=== PATIENT | female | born 1955 | race African-American/Black ===

== ENCOUNTER 2018-07-24 07:04 | Emergency (ER) | payer MEDICAID ==
[~2018-07-24] VITALS: Ht 167.6 cm; Wt 68.0 kg
[2018-07-24 07:15] VITALS: BP 142/88
== END 2018-07-24 10:40 | disposition left against medical advice (07) ==
LOC: ER 07:36
DX: R10.9 Unspecified abdominal pain (principal); Z53.21 Procedure and treatment not carried out due to patient leaving prior to being seen by health care provider

== ENCOUNTER 2019-10-28 10:16 | Emergency (ER) | payer MEDICARE, MEDICAID ==
[~2019-10-28] VITALS: Ht 165.1 cm; Wt 60.0 kg
[2019-10-28] MEDS ORDERED: SODIUM CHLORIDE 0.9% 1,000 ML IV ONE (10:51)
[2019-10-28] MEDS ORDERED: HYDROCODONE/ACETAMINOPHEN 5/325MG TABLET PO STA (10:51)
[2019-10-28 11:20] LABS: BASOPHILS % 1.3 % (0.0-2.0); EOSINOPHILS % 3.2 % (0.0-5.0); HEMATOCRIT. 47.1 % (36.0-48.0); HEMOGLOBIN. 15.8 g/dL (12.0-16.0); LYMPHOCYTES % 30.1 % (20.0-50.0); MEAN CORPUSCULAR HEMOGLOBIN 34.9 pg (28.0-32.0); MEAN CORPUSCULAR VOLUME 103.9 fL (81.0-99.0); MEAN PLATELET VOLUME 8.1 fl (7.4-10.4); MONOCYTES % 5.7 % (2.0-8.0); NEUTROPHILS % 59.7 % (40.0-76.0); PLATELET 271 x1000/uL (130-400); RED BLOOD CELL COUNT 4.54 mill/uL (4.2-5.4); RED CELL DISTRIBUTION WIDTH 13.1 % (11.6-14.6)
[2019-10-28 11:25] LABS: INR 0.9
[2019-10-28 11:28] LABS: CHLORIDE 112 mEq/L (98-107)
[2019-10-28] MEDS ORDERED: IPRATROPIUM BROMIDE (0.02%) 0.5MG/2.5ML NEB HHN STA (11:52)
[2019-10-28] MEDS ORDERED: ALBUTEROL (0.083%) 2.5MG/3ML NEB HHN STA (11:52)
[2019-10-28] MEDS ORDERED: PREDNISONE 20MG TABLET PO STA (11:52)
[2019-10-28] MEDS ORDERED: DEXTROSE 50% WATER 50ML SYRINGE IV ONE (13:00)
[2019-10-28 13:13] LABS: CLARITY URINE CLEAR (CLEAR); COLOR URINE YELLOW (YELLOW); KETONES URINE NEGATIVE (NEGATIVE); LEUKOCYTE ESTERASE URINE NEGATIVE (NEGATIVE); NITRITE URINE NEGATIVE (NEGATIVE); OCCULT BLOOD URINE NEGATIVE (NEGATIVE); PH URINE 6.5 (4.5-8.0); PROTEIN URINE NEGATIVE (NEGATIVE); SPECIFIC GRAVITY URINE 1.019 (1.005-1.030)
[2019-10-28] MEDS ORDERED: IBUPROFEN 600MG TABLET PO ONE (15:15)
[2019-10-28 16:52] VITALS: BP 137/77
== END 2019-10-28 16:54 | disposition home or self-care (01) ==
LOC: EDBD → ER 10:16
DX: J40 Bronchitis, not specified as acute or chronic (principal); K94.09 Other complications of colostomy; F20.9 Schizophrenia, unspecified; Q43.8 Other specified congenital malformations of intestine; Z79.899 Other long term (current) drug therapy
CPT/HCPCS: 36415; 71045; 74176; 80053; 81003; 83605; 85025; 85610; 94640; 96374; 99285; J7030; J7512

== ENCOUNTER 2019-10-29 23:26 | Inpatient (IN) | payer MEDICARE, MEDICAID ==
[~2019-10-29] VITALS: Ht 172.7 cm; Wt 54.0 kg
[2019-10-30] VITALS: BP 147/74
[2019-10-30 02:00] LABS: CHLORIDE 113 mEq/L (98-107)
[2019-10-30 02:11] LABS: BASOPHILS % 0.8 % (0.0-2.0); EOSINOPHILS % 0.9 % (0.0-5.0); HEMATOCRIT. 43.9 % (36.0-48.0); HEMOGLOBIN. 15.1 g/dL (12.0-16.0); LYMPHOCYTES % 41.4 % (20.0-50.0); MEAN CORPUSCULAR HEMOGLOBIN 36.1 pg (28.0-32.0); MEAN CORPUSCULAR VOLUME 104.9 fL (81.0-99.0); MEAN PLATELET VOLUME 8.4 fl (7.4-10.4); MONOCYTES % 4.1 % (2.0-8.0); NEUTROPHILS % 52.8 % (40.0-76.0); PLATELET 248 x1000/uL (130-400); RED BLOOD CELL COUNT 4.19 mill/uL (4.2-5.4); RED CELL DISTRIBUTION WIDTH 13.2 % (11.6-14.6)
[2019-10-30] MEDS ORDERED: INSULIN REGULAR (HUMULIN R) 300UNITS/3ML IV ONE (04:45)
[2019-10-30] MEDS ORDERED: DEXTROSE 50% WATER 50ML SYRINGE IV ONE (04:45)
[2019-10-30] MEDS ORDERED: SODIUM BICARBONATE 8.4% 1 MEQ/ML 50ML SYR IV ONE (04:45)
[2019-10-30] MEDS ORDERED: IPRATROPIUM/ALBUTEROL 0.5-3(2.5)MG/3ML NEB NEB SCH (10:30)
[2019-10-30] MEDS ORDERED: ACETAMINOPHEN 325MG TABLET PO PRN (10:30)
[2019-10-30] MEDS ORDERED: CLONIDINE 0.1MG TABLET PO PRN (10:30)
[2019-10-30 10:58] LABS: BG BASE EXCESS 3.8 mmol/L (-2.0-2.0); BG CARBOXYHEMOGLOBIN 2.7 % (0.5-1.5); BG DEOXYHEMOGLOBIN 4.3 % (0.0-5.0); BG FRACTION INSPIRED OXYGEN 21; BG HCO3 ACT 26.8 mmol/L (22.0-26.0); BG METHEMOGLOBIN 0.1 % (0.0-1.5); BG OXYGEN SATURATION 95.6 % (92.0-98.5); BG OXYHEMOGLOBIN 92.9 % (94.0-97.0); BG PCO2 35.2 mmHg (35.0-45.0); BG PH 7.499 (7.350-7.450); BG PO2 73.8 mmHg (75.0-100.0); BG SAMPLE SITE RIGHT RADIAL; BG TOTAL HEMOGLOBIN 14.5 g/dL (12.0-18.0); BG VENT MODE ROOM AIR
[2019-10-30] MEDS ORDERED: SODIUM POLYSTYRENE SULFONATE 15 G/60 ML BOT PO NR (11:00)
[2019-10-30] MEDS ORDERED: DOXYCYCLINE HYCLATE 100MG CAPSULE PO ONE (11:00)
[2019-10-30] MEDS: SODIUM CHLORIDE 0.9% 1,000 ML IV SCH (11:28)
[2019-10-30] MEDS ORDERED: GABAPENTIN 300MG CAPSULE PO NR (14:15)
[2019-10-30] MEDS: METHYLPREDNISOLONE SOD SUCC 40 MG/ML VIAL IV SCH (17:52)
[2019-10-30] MEDS ORDERED: DOXYCYCLINE HYCLATE 100MG CAPSULE PO SCH (18:00)
[2019-10-30 20:17] LABS: CHLORIDE 111 mEq/L (98-107)
[2019-10-30 22:00] VITALS: BP 154/81
[2019-10-30 22:20] VITALS: BP 157/87
[2019-10-30] MEDS: GUAIFENESIN 600MG ER TABLET PO SCH (23:16)
[2019-10-30] MEDS: GABAPENTIN 300MG CAPSULE PO SCH (23:17)
[2019-10-30] MEDS: HYDROCODONE/ACETAMINOPHEN 5/325MG TABLET PO PRN (23:19)
[2019-10-30] MEDS: HEPARIN 5000 UNITS/ML VIAL SUBCUT SCH (23:21)
[2019-10-31] MEDS: METHYLPREDNISOLONE SOD SUCC 40 MG/ML VIAL IV SCH ×3 (02:42→17:30)
[2019-10-31] MEDS: SODIUM CHLORIDE 0.9% 1,000 ML IV SCH ×2 (02:46→12:00)
[2019-10-31 04:00] VITALS: BP 130/67
[2019-10-31] MEDS: IPRATROPIUM/ALBUTEROL 0.5-3(2.5)MG/3ML NEB HHN SCH ×2 (05:16→12:00)
[2019-10-31] MEDS: GABAPENTIN 300MG CAPSULE PO SCH ×3 (06:20→21:38)
[2019-10-31 06:38] LABS: HEMATOCRIT. 45.4 % (36.0-48.0); HEMOGLOBIN. 15.6 g/dL (12.0-16.0); MEAN CORPUSCULAR VOLUME 104.9 fL (81.0-99.0); MEAN PLATELET VOLUME 9.2 fl (7.4-10.4); PLATELET 295 x1000/uL (130-400); RED BLOOD CELL COUNT 4.33 mill/uL (4.2-5.4); RED CELL DISTRIBUTION WIDTH 12.9 % (11.6-14.6)
[2019-10-31 07:40] LABS: CHLORIDE 108 mEq/L (98-107)
[2019-10-31 08:00] VITALS: BP 141/81
[2019-10-31] MEDS: DOXYCYCLINE HYCLATE 100MG CAPSULE PO SCH ×2 (09:33→17:00)
[2019-10-31] MEDS: HYDROCODONE/ACETAMINOPHEN 5/325MG TABLET PO PRN ×2 (09:33→18:18)
[2019-10-31] MEDS: GUAIFENESIN 600MG ER TABLET PO SCH ×2 (09:34→21:39)
[2019-10-31] MEDS: HEPARIN 5000 UNITS/ML VIAL SUBCUT SCH ×2 (09:34→21:41)
[2019-10-31 10:46] LABS: PLATELET ESTIMATE NORMAL
[2019-10-31] MEDS: DOCUSATE SODIUM 100MG CAPSULE PO PRN ×2 (11:53→18:18)
[2019-10-31] MEDS: ONDANSETRON HCL 4MG/2ML INJ IV PRN ×2 (11:54→18:18)
[2019-10-31] MEDS: LORAZEPAM 0.5MG TABLET PO PRN ×2 (12:16→21:39)
[2019-10-31 12:43] VITALS: BP 159/84
[2019-10-31] MEDS ORDERED: BENZONATATE 100MG CAPSULE PO PRN (15:00)
[2019-10-31 16:00] VITALS: BP 135/81
[2019-10-31 20:00] VITALS: BP 148/75
[2019-11-01] VITALS: BP 134/70
[2019-11-01] MEDS: IPRATROPIUM/ALBUTEROL 0.5-3(2.5)MG/3ML NEB HHN SCH ×5 (01:32→21:36)
[2019-11-01] MEDS: METHYLPREDNISOLONE SOD SUCC 40 MG/ML VIAL IV SCH ×2 (02:07→09:15)
[2019-11-01] MEDS: SODIUM CHLORIDE 0.9% 1,000 ML IV SCH ×2 (02:10→13:00)
[2019-11-01] MEDS: HYDROCODONE/ACETAMINOPHEN 5/325MG TABLET PO PRN ×3 (02:10→14:54)
[2019-11-01 04:00] VITALS: BP 149/68
[2019-11-01 05:05] LABS: BASOPHILS % 0.3 % (0.0-2.0); HEMOGLOBIN. 14.6 g/dL (12.0-16.0); LYMPHOCYTES % 7.1 % (20.0-50.0); MEAN CORPUSCULAR VOLUME 105.2 fL (81.0-99.0); MONOCYTES % 2.7 % (2.0-8.0); NEUTROPHILS % 89.9 % (40.0-76.0); PLATELET 301 x1000/uL (130-400); RED BLOOD CELL COUNT 4.19 mill/uL (4.2-5.4)
[2019-11-01 05:14] LABS: CHLORIDE 110 mEq/L (98-107)
[2019-11-01] MEDS: GABAPENTIN 300MG CAPSULE PO SCH ×3 (06:33→22:02)
[2019-11-01 08:00] VITALS: BP 147/76
[2019-11-01] MEDS: BUDESONIDE 0.5MG/2ML NEB HHN SCH ×3 (08:18→22:15)
[2019-11-01] MEDS: HEPARIN 5000 UNITS/ML VIAL SUBCUT SCH ×3 (09:00→22:02)
[2019-11-01] MEDS: ONDANSETRON HCL 4MG/2ML INJ IV PRN ×2 (09:14→14:53)
[2019-11-01] MEDS: DOXYCYCLINE HYCLATE 100MG CAPSULE PO SCH ×2 (09:15→17:16)
[2019-11-01] MEDS: GUAIFENESIN 600MG ER TABLET PO SCH ×2 (09:15→22:02)
[2019-11-01 12:00] VITALS: BP 153/62
[2019-11-01] MEDS ORDERED: MAGNESIUM 2 G PREMIX 50 ML IV NR (12:30)
[2019-11-01] MEDS ORDERED: LEVOFLOXACIN 500MG PREMIX 100 ML IV SCH (13:00)
[2019-11-01] MEDS ORDERED: IOHEXOL-300 100 ML BOTTLE ONE (15:21)
[2019-11-01] MEDS: DOCUSATE SODIUM 100MG CAPSULE PO PRN (15:37)
[2019-11-01] MEDS: DIPHENHYDRAMINE 50MG CAPSULE PO PRN ×2 (15:59→23:08)
[2019-11-01 16:00] VITALS: BP 162/71
[2019-11-01] MEDS: LACTOBACILLUS GG CAPSULE PO SCH (16:00)
[2019-11-01] MEDS: METRONIDAZOLE 500 MG PREMIX 100 ML IV SCH ×2 (17:16→22:00)
[2019-11-01 20:00] VITALS: BP 134/71
[2019-11-01] MEDS ORDERED: MICONAZOLE NITRATE 100MG VAG SUPP VG SCH (21:00)
[2019-11-01] MEDS: LORAZEPAM 0.5MG TABLET PO PRN (22:02)
[2019-11-02] VITALS: BP 114/59
[2019-11-02] MEDS: IPRATROPIUM/ALBUTEROL 0.5-3(2.5)MG/3ML NEB HHN SCH ×2 (01:21→04:28)
[2019-11-02] MEDS: SODIUM CHLORIDE 0.9% 1,000 ML IV SCH (01:30)
[2019-11-02 04:00] VITALS: BP 110/56
[2019-11-02] MEDS: ONDANSETRON HCL 4MG/2ML INJ IV PRN (05:32)
[2019-11-02] MEDS: GABAPENTIN 300MG CAPSULE PO SCH (05:33)
[2019-11-02] MEDS: HYDROCODONE/ACETAMINOPHEN 5/325MG TABLET PO PRN (05:33)
[2019-11-02] MEDS: METRONIDAZOLE 500 MG PREMIX 100 ML IV SCH (06:00)
[2019-11-02 07:30] LABS: BASOPHILS % 0.4 % (0.0-2.0); EOSINOPHILS % 0.3 % (0.0-5.0); HEMATOCRIT. 42.8 % (36.0-48.0); LYMPHOCYTES % 28.8 % (20.0-50.0); MEAN CORPUSCULAR HEMOGLOBIN 34.5 pg (28.0-32.0); MEAN CORPUSCULAR VOLUME 105.2 fL (81.0-99.0); MEAN PLATELET VOLUME 8.8 fl (7.4-10.4); MONOCYTES % 5.2 % (2.0-8.0); NEUTROPHILS % 65.3 % (40.0-76.0); PLATELET 273 x1000/uL (130-400); RED BLOOD CELL COUNT 4.07 mill/uL (4.2-5.4); RED CELL DISTRIBUTION WIDTH 13.3 % (11.6-14.6)
[2019-11-02] MEDS: DIPHENHYDRAMINE 50MG CAPSULE PO PRN (07:50)
[2019-11-02 08:00] VITALS: BP 127/69
[2019-11-02 08:21] LABS: CHLORIDE 111 mEq/L (98-107)
[2019-11-02] MEDS ORDERED: PREDNISONE 20MG TABLET PO SCH (09:00)
[2019-11-02] MEDS: HEPARIN 5000 UNITS/ML VIAL SUBCUT SCH (09:00)
[2019-11-02] MEDS ORDERED: HYDROCODONE/ACETAMINOPHEN 10/325MG TABLET PO PRN (09:30)
[2019-11-02] MEDS: DOCUSATE SODIUM 100MG CAPSULE PO PRN (10:09)
[2019-11-02] MEDS: DOXYCYCLINE HYCLATE 100MG CAPSULE PO SCH (10:09)
[2019-11-02] MEDS: LORAZEPAM 0.5MG TABLET PO PRN (10:09)
[2019-11-02] MEDS: GUAIFENESIN 600MG ER TABLET PO SCH (10:09)
[2019-11-02] MEDS: LACTOBACILLUS GG CAPSULE PO SCH (10:10)
[2019-11-02 10:50] VITALS: BP 127/69
[2019-11-02] MEDS ORDERED: LEVOFLOXACIN 250MG PREMIX 50 ML IV SCH (15:00)
== END 2019-11-02 13:07 | DRG 871 ==
LOC: ER 23:35 → EDBD 23:35 → 7WST 10-30 06:21 → EDBEDREQ 10-30 06:23 → EDBEDREQTM 10-30 06:23 → ENRESERV 10-30 20:16
PROVIDERS: ADMIT Family Medicine Adult Medicine; ATTEND Family Medicine Adult Medicine
DX: A41.9 Sepsis, unspecified organism (principal); J96.01 Acute respiratory failure with hypoxia; E44.0 Moderate protein-calorie malnutrition; J44.0 Chronic obstructive pulmonary disease with (acute) lower respiratory infection; J44.1 Chronic obstructive pulmonary disease with (acute) exacerbation; Z68.1 Body mass index [BMI] 19.9 or less, adult; E83.42 Hypomagnesemia; E87.5 Hyperkalemia; F17.210 Nicotine dependence, cigarettes, uncomplicated; F20.9 Schizophrenia, unspecified; B37.3 Candidiasis of vulva and vagina; F41.1 Generalized anxiety disorder; G62.9 Polyneuropathy, unspecified; I10 Essential (primary) hypertension; J20.9 Acute bronchitis, unspecified; M19.90 Unspecified osteoarthritis, unspecified site; Z91.030 Bee allergy status; T38.0X5A Adverse effect of glucocorticoids and synthetic analogues, initial encounter; Z93.3 Colostomy status; Z87.01 Personal history of pneumonia (recurrent); Y92.89 Other specified places as the place of occurrence of the external cause; K52.9 Noninfective gastroenteritis and colitis, unspecified
CPT/HCPCS: 36415; 36600; 71045; 74177; 80048; 80053; 82375; 82805; 83605; 83735; 83880; 84484; 85025; 87804; 93005; 94640; 96374; 96375; 97116; 97162; 97166; 99285; J1644; J1815; J1956; J2405; J2920; J3475; J3490; J7512; J7626; Q0163; Q9967

== ENCOUNTER 2020-03-31 15:02 | Inpatient (IN) | payer MEDICARE, MEDICAID ==
[~2020-03-31] VITALS: Ht 170.2 cm; Wt 57.3 kg
[2020-03-31] MEDS ORDERED: KETOROLAC 30MG/ML VIAL IV STA (15:42)
[2020-03-31 16:16] LABS: BASOPHILS % 1.3 % (0.0-2.0); EOSINOPHILS % 2.4 % (0.0-5.0); HEMATOCRIT. 46.5 % (36.0-48.0); HEMOGLOBIN. 15.7 g/dL (12.0-16.0); LYMPHOCYTES % 34.2 % (20.0-50.0); MEAN CORPUSCULAR HEMOGLOBIN 34.5 pg (28.0-32.0); MEAN PLATELET VOLUME 8.7 fl (7.4-10.4); MONOCYTES % 7.2 % (2.0-8.0); NEUTROPHILS % 54.9 % (40.0-76.0); PLATELET 197 x1000/uL (130-400); RED BLOOD CELL COUNT 4.55 mill/uL (4.2-5.4); RED CELL DISTRIBUTION WIDTH 13.9 % (11.6-14.6)
[2020-03-31 16:22] LABS: CHLORIDE 111 mEq/L (98-107)
[2020-03-31 16:25] LABS: PROTHROMBIN TIME 10.4 sec (9.6-11.0)
[2020-03-31 21:37] VITALS: BP 145/71
[2020-03-31 21:45] VITALS: BP 145/71
[2020-03-31] MEDS: HYDROCODONE/ACETAMINOPHEN 10/325MG TABLET PO PRN (23:40)
[2020-04-01] VITALS: BP 139/75
[2020-04-01] MEDS ORDERED: ALPR2TAB2 MT (03:55)
[2020-04-01] MEDS ORDERED: DIPH25CA83 MT (03:55)
[2020-04-01] MEDS ORDERED: MORP15TA67 PO (03:55)
[2020-04-01] MEDS ORDERED: LIDO15CR11 TP (03:55)
[2020-04-01 04:00] VITALS: BP 132/76
[2020-04-01] MEDS: PANTOPRAZOLE 40MG DR TABLET PO SCH (05:51)
[2020-04-01] MEDS: HYDROCODONE/ACETAMINOPHEN 10/325MG TABLET PO PRN ×2 (05:53→14:49)
[2020-04-01] MEDS ORDERED: PNEUMOCOCCAL 23-VAL P-SAC VAC 0.5 ML IM ONE (06:00)
[2020-04-01 06:22] LABS: BASOPHILS % 1.6 % (0.0-2.0); EOSINOPHILS % 5.1 % (0.0-5.0); HEMATOCRIT. 43.5 % (36.0-48.0); HEMOGLOBIN. 14.5 g/dL (12.0-16.0); LYMPHOCYTES % 48.1 % (20.0-50.0); MEAN CORPUSCULAR HEMOGLOBIN 33.9 pg (28.0-32.0); MEAN CORPUSCULAR VOLUME 101.5 fL (81.0-99.0); MEAN PLATELET VOLUME 8.5 fl (7.4-10.4); MONOCYTES % 9.4 % (2.0-8.0); NEUTROPHILS % 35.8 % (40.0-76.0); PLATELET 204 x1000/uL (130-400); RED BLOOD CELL COUNT 4.28 mill/uL (4.2-5.4); RED CELL DISTRIBUTION WIDTH 13.7 % (11.6-14.6)
[2020-04-01 06:35] LABS: CHLORIDE 110 mEq/L (98-107)
[2020-04-01 06:42] LABS: LDL CHOLESTEROL 102 mg/dL (5-100)
[2020-04-01 06:44] LABS: HDL CHOLESTEROL 69 mg/dL (40-59)
[2020-04-01] MEDS: ENOXAPARIN 40MG/0.4ML SYR SUBCUT SCH ×2 (09:00→09:16)
[2020-04-01] MEDS ORDERED: ASPIRIN 81MG EC TABLET PO SCH (09:00)
[2020-04-01 11:45] LABS: CREATINE KINASE 204 IU/L (26-192)
[2020-04-01 11:47] LABS: CREATINE KINASE MB FRACTION < 1.0 ng/mL (0.5-3.6)
[2020-04-01] MEDS ORDERED: FLUCONAZOLE 150MG TABLET PO SCH (14:00)
[2020-04-01] MEDS ORDERED: ACETAMINOPHEN 325MG TABLET PO PRN (15:00)
[2020-04-01] MEDS ORDERED: IPRATROPIUM/ALBUTEROL 0.5-3(2.5)MG/3ML NEB HHN PRN (15:00)
[2020-04-01] MEDS ORDERED: LACTULOSE 20G/30ML UDC PO PRN (15:00)
[2020-04-01] MEDS ORDERED: HYDRALAZINE 20MG/ML VIAL IV PRN (15:00)
[2020-04-01] MEDS ORDERED: ACETAMINOPHEN 650MG SUPP PR PRN (15:00)
[2020-04-01] MEDS ORDERED: IOHEXOL-350 100 ML BOTTLE ONE (16:17)
[2020-04-01] MEDS: LIDOCAINE 5% PATCH TOP SCH (17:42)
[2020-04-01] MEDS: ONDANSETRON HCL 4MG/2ML INJ IV PRN (18:40)
[2020-04-01 20:00] VITALS: BP 142/64
[2020-04-01] MEDS: LORAZEPAM 2MG/ML CPJ IV PRN (20:44)
[2020-04-02] MEDS: DEXAMETHASONE 4MG/ML 1ML VIAL IV SCH ×5 (00:38→23:18)
[2020-04-02] MEDS: DEXT 5%/0.45% NACL 1000ML 1,000 ML IV SCH ×2 (00:39→09:17)
[2020-04-02 01:24] VITALS: BP 112/51
[2020-04-02 04:00] VITALS: BP 122/84
[2020-04-02] MEDS: PANTOPRAZOLE 40MG DR TABLET PO SCH (06:45)
[2020-04-02 08:00] VITALS: BP 130/80
[2020-04-02] MEDS: LIDOCAINE 5% PATCH TOP SCH (09:12)
[2020-04-02 09:32] LABS: HEMATOCRIT. 45.4 % (36.0-48.0); HEMOGLOBIN. 15.1 g/dL (12.0-16.0); MEAN CORPUSCULAR HEMOGLOBIN 34.1 pg (28.0-32.0); MEAN CORPUSCULAR VOLUME 102.4 fL (81.0-99.0); MEAN PLATELET VOLUME 8.7 fl (7.4-10.4); PLATELET 192 x1000/uL (130-400); RED BLOOD CELL COUNT 4.43 mill/uL (4.2-5.4); RED CELL DISTRIBUTION WIDTH 13.6 % (11.6-14.6)
[2020-04-02 09:50] LABS: CHLORIDE 109 mEq/L (98-107)
[2020-04-02 10:01] LABS: T4 FREE 0.83 ng/dL (0.76-1.46)
[2020-04-02] MEDS: MORPHINE SULFATE 2 MG/ML CPJ (NOT FOR IM USE) IV PRN ×3 (10:36→21:57)
[2020-04-02 12:00] VITALS: BP 132/78
[2020-04-02 16:00] VITALS: BP 126/89
[2020-04-02 18:36] LABS: PLATELET ESTIMATE NORMAL
[2020-04-02 20:00] VITALS: BP 116/56
[2020-04-02] MEDS: LORAZEPAM 2MG/ML CPJ IV PRN (20:24)
[2020-04-02] MEDS: ONDANSETRON HCL 4MG/2ML INJ IV PRN (20:24)
[2020-04-02] MEDS: DIPHENHYDRAMINE 50MG/ML VIAL IV PRN (23:33)
[2020-04-03] VITALS (51 sets, daily range): BP systolic 88–184; BP diastolic 44–112
[2020-04-03] MEDS: LORAZEPAM 2MG/ML CPJ IV PRN ×3 (02:42→23:25)
[2020-04-03] MEDS: DEXAMETHASONE 4MG/ML 1ML VIAL IV SCH ×4 (05:32→23:25)
[2020-04-03 07:39] LABS: HEMATOCRIT 44.2 % (36.0-48.0); HEMOGLOBIN 14.7 g/dL (12.0-16.0); MEAN CORPUSCULAR HEMOGLOBIN 34.1 pg (28.0-32.0); MEAN CORPUSCULAR VOLUME 102.5 fL (81.0-99.0); PLATELET 216 x1000/uL (130-400); RED BLOOD CELL COUNT 4.31 mill/uL (4.2-5.4); RED CELL DISTRIBUTION WIDTH 13.4 % (11.6-14.6)
[2020-04-03] MEDS ORDERED: BACITRACIN 15GM TUBE TOP ONE (08:11)
[2020-04-03] MEDS ORDERED: BACITRACIN 50,000 UNITS/VIAL ONE (08:12)
[2020-04-03] MEDS ORDERED: LIDOCAINE HCL/EPINEPHRINE 1%-EPI 1:100,000 20 ML VIAL ONE (08:12)
[2020-04-03] MEDS ORDERED: NORMAL SALINE 0.9% 10 ML SYR ONE ×2 (08:12→09:02)
[2020-04-03] MEDS ORDERED: THROMBIN (BOVINE) 5000 UNITS/VIAL TOP ONE (08:12)
[2020-04-03 08:17] LABS: CHLORIDE 111 mEq/L (98-107)
[2020-04-03] MEDS: FAMOTIDINE 20MG TABLET PO SCH ×2 (08:37→20:47)
[2020-04-03] MEDS: LIDOCAINE 5% PATCH TOP SCH (09:00)
[2020-04-03] MEDS ORDERED: FENTANYL CITRATE/PF 50MCG/ML 2ML VIAL ONE (09:03)
[2020-04-03] MEDS ORDERED: PROPOFOL 200MG/20ML VIAL IV ONE (09:04)
[2020-04-03] MEDS ORDERED: CEFAZOLIN SODIUM 1000MG/VIAL ONE (09:04)
[2020-04-03] MEDS ORDERED: SODIUM CHLORIDE 0.9% 10ML VIAL ONE ×4 (09:04→10:14)
[2020-04-03] MEDS ORDERED: MIDAZOLAM HCL 2 MG/2 ML VIAL ONE (09:04)
[2020-04-03] MEDS ORDERED: ROCURONIUM BROMIDE 10MG/ML VIAL 5ML IV ONE (09:04)
[2020-04-03] MEDS ORDERED: PHENYLEPHRINE HCL 10 MG/ML 1ML (IV VIAL) IV ONE (09:08)
[2020-04-03] MEDS ORDERED: SUCCINYLCHOLINE CHLORIDE 200MG/10ML IV ONE (09:29)
[2020-04-03] MEDS ORDERED: LIDOCAINE HCL 1% 20ML VIAL (Pyxis) INJ ONE ×2 (09:32→13:15)
[2020-04-03] MEDS ORDERED: LABETALOL HCL 5MG/ML VIAL 20ML IV ONE (09:40)
[2020-04-03] MEDS ORDERED: ONDANSETRON HCL 4MG/2ML INJ ONE (09:52)
[2020-04-03] MEDS ORDERED: DEXAMETHASONE 4MG/ML 1ML VIAL ONE (09:53)
[2020-04-03] MEDS ORDERED: NICARDIPINE 100 MG in SODIUM CHLORIDE 0.9% 60 ML IV PRN (10:00)
[2020-04-03] MEDS ORDERED: HYDROMORPHONE HCL/PF 2MG/ML (OR) ONE (10:13)
[2020-04-03] MEDS ORDERED: NEOSTIGMINE METHYLSULFATE 1MG/ML 10 ML VIAL ONE (10:25)
[2020-04-03] MEDS ORDERED: GLYCOPYRROLATE 0.2 MG/ML 2ML VIAL ONE (10:26)
[2020-04-03] MEDS ORDERED: MEPERIDINE HCL/PF 25MG/ML CPJ IV PRN (10:45)
[2020-04-03] MEDS ORDERED: ONDANSETRON HCL 4MG/2ML INJ IV PRN (10:45)
[2020-04-03] MEDS ORDERED: HYDROMORPHONE HCL/PF 2MG/ML CPJ IV PRN (10:45)
[2020-04-03] MEDS ORDERED: MAGNESIUM SULFATE 5GM/10ML VIAL IV ONE (10:53)
[2020-04-03] MEDS: MORPHINE SULFATE 4 MG/ML CPJ (NOT FOR IM USE) IV PRN ×5 (13:06→23:25)
[2020-04-03] MEDS: DEXT 5%/LACTATED RINGERS 1,000 ML IV SCH ×2 (13:06→22:48)
[2020-04-03] MEDS ORDERED: SODIUM BICARBONATE 4% (2.4MEQ) 5ML VIAL IV ONE (13:15)
[2020-04-03] MEDS ORDERED: CEFAZOLIN SODIUM 1000MG/VIAL IV SCH (14:00)
[2020-04-03] MEDS: CEFAZOLIN 1000MG PREMIX 50 ML IV SCH (16:34)
[2020-04-03 18:03] LABS: CLARITY URINE CLEAR (CLEAR); COLOR URINE YELLOW (YELLOW); KETONES URINE NEGATIVE (NEGATIVE); LEUKOCYTE ESTERASE URINE TRACE (NEGATIVE); NITRITE URINE NEGATIVE (NEGATIVE); OCCULT BLOOD URINE TRACE (NEGATIVE); PROTEIN URINE NEGATIVE (NEGATIVE); SPECIFIC GRAVITY URINE 1.014 (1.005-1.030); UROBILINOGEN URINE 0.2 E.U./dL (0.2-1.0)
[2020-04-03 18:32] LABS: *AMPHETAMINES SCREEN URINE NEGATIVE (NEGATIVE); *BARBITURATES SCREEN URINE NEGATIVE (NEGATIVE); *BENZODIAZEPINES SCREEN URINE PRESUMTIVE POSITIVE (NEGATIVE); *COCAINE SCREEN URINE PRESUMTIVE POSITIVE (NEGATIVE); CANNABINOID URINE SCREEN NEGATIVE (NEGATIVE); METHADONE URINE SCREEN NEGATIVE (NEGATIVE); OPIATES URINE SCREEN PRESUMTIVE POSITIVE (NEGATIVE); PHENCYCLIDINE URINE SCREEN NEGATIVE (NEGATIVE)
[2020-04-03] MEDS: DIPHENHYDRAMINE 50MG/ML VIAL IV PRN (20:52)
[2020-04-04] VITALS (14 sets, daily range): BP systolic 97–162; BP diastolic 55–84
[2020-04-04] MEDS: CEFAZOLIN 1000MG PREMIX 50 ML IV SCH ×2 (00:04→08:58)
[2020-04-04] MEDS: MORPHINE SULFATE 4 MG/ML CPJ (NOT FOR IM USE) IV PRN ×7 (02:28→23:14)
[2020-04-04] MEDS: DIPHENHYDRAMINE 50MG/ML VIAL IV PRN ×2 (04:26→10:38)
[2020-04-04] MEDS: DEXAMETHASONE 4MG/ML 1ML VIAL IV SCH ×3 (05:39→18:22)
[2020-04-04] MEDS: ONDANSETRON HCL 4MG/2ML INJ IV PRN (05:39)
[2020-04-04 05:48] LABS: HEMOGLOBIN 13.8 g/dL (12.0-16.0); MEAN CORPUSCULAR HEMOGLOBIN 33.9 pg (28.0-32.0); MEAN CORPUSCULAR VOLUME 103.4 fL (81.0-99.0); PLATELET 195 x1000/uL (130-400); RED BLOOD CELL COUNT 4.07 mill/uL (4.2-5.4)
[2020-04-04 05:52] LABS: CHLORIDE 110 mEq/L (98-107)
[2020-04-04] MEDS: LIDOCAINE 5% PATCH TOP SCH (08:59)
[2020-04-04] MEDS: FAMOTIDINE 20MG TABLET PO SCH ×2 (09:01→20:48)
[2020-04-04] MEDS: LORAZEPAM 2MG/ML CPJ IV PRN (15:48)
[2020-04-04] MEDS: HYDROCODONE/ACETAMINOPHEN 10/325MG TABLET PO PRN (22:14)
[2020-04-05] VITALS: BP 148/79
[2020-04-05] MEDS: LORAZEPAM 2MG/ML CPJ IV PRN ×3 (00:23→22:02)
[2020-04-05 04:00] VITALS: BP 167/84
[2020-04-05 07:09] LABS: CHLORIDE 108 mEq/L (98-107)
[2020-04-05 07:10] LABS: MEAN CORPUSCULAR HEMOGLOBIN 34.3 pg (28.0-32.0); MEAN CORPUSCULAR VOLUME 103.1 fL (81.0-99.0); PLATELET 190 x1000/uL (130-400); RED BLOOD CELL COUNT 4.08 mill/uL (4.2-5.4); RED CELL DISTRIBUTION WIDTH 13.9 % (11.6-14.6)
[2020-04-05 08:00] VITALS: BP 151/84
[2020-04-05] MEDS: LIDOCAINE 5% PATCH TOP SCH (09:13)
[2020-04-05] MEDS: FAMOTIDINE 20MG TABLET PO SCH ×2 (09:13→20:13)
[2020-04-05] MEDS: HYDROCODONE/ACETAMINOPHEN 10/325MG TABLET PO PRN ×2 (09:14→20:13)
[2020-04-05] MEDS: MORPHINE SULFATE 4 MG/ML CPJ (NOT FOR IM USE) IV PRN ×4 (11:53→23:47)
[2020-04-05 12:00] VITALS: BP 93/74
[2020-04-05] MEDS: ONDANSETRON HCL 4MG/2ML INJ IV PRN (12:44)
[2020-04-05 16:00] VITALS: BP 151/78
[2020-04-05 20:00] VITALS: BP 165/98
[2020-04-06] VITALS: BP 143/81
[2020-04-06] MEDS: MORPHINE SULFATE 4 MG/ML CPJ (NOT FOR IM USE) IV PRN (03:38)
[2020-04-06 04:00] VITALS: BP 142/85
[2020-04-06] MEDS ORDERED: HYDROCODONE/ACETAMINOPHEN 10/325MG TABLET PO PRN ×2 (04:45→11:00)
[2020-04-06 06:40] LABS: HEMATOCRIT 46.5 % (36.0-48.0); HEMOGLOBIN 15.2 g/dL (12.0-16.0); MEAN CORPUSCULAR HEMOGLOBIN 34.2 pg (28.0-32.0); MEAN CORPUSCULAR VOLUME 104.4 fL (81.0-99.0); PLATELET 115 x1000/uL (130-400); RED BLOOD CELL COUNT 4.45 mill/uL (4.2-5.4)
[2020-04-06] MEDS: LORAZEPAM 2MG/ML CPJ IV PRN (06:40)
[2020-04-06 07:03] LABS: CHLORIDE 106 mEq/L (98-107)
[2020-04-06 08:00] VITALS: BP 154/84
[2020-04-06] MEDS: FAMOTIDINE 20MG TABLET PO SCH (08:57)
[2020-04-06] MEDS: LIDOCAINE 5% PATCH TOP SCH (08:58)
[2020-04-06 12:00] VITALS: BP 143/65
[2020-04-06] MEDS ORDERED: HYDRALAZINE 10 MG in SODIUM CHLORIDE 0.9% 49.5 ML IV PRN (12:45)
[2020-04-06] MEDS ORDERED: LOSARTAN POTASSIUM 50 MG TABLET PO SCH (15:00)
[2020-04-06 16:00] VITALS: BP 145/67
[2020-04-06 16:24] VITALS: BP 145/67
[2020-04-07] MEDS ORDERED: METOPROLOL TARTRATE 25MG TABLET PO SCH (09:00)
== END 2020-04-06 17:33 | DRG 471 ==
LOC: ER 15:02 → 5WST 17:36 → EDBEDREQ 17:41 → EDBEDREQSVC 17:41 → ENRESERV 20:32 → MICUNO 04-03 10:04 → 6EST 04-04 11:19
PROVIDERS: ADMIT Internal Medicine; ATTEND Internal Medicine
PROC: 02HV33Z Insertion of Infusion Device into Superior Vena Cava, Percutaneous Approach (ICD-10-PCS; principal; 2020-04-03)
PROC: B548ZZA Ultrasonography of Superior Vena Cava, Guidance (ICD-10-PCS; 2020-04-03)
PROC: 0RG10A0 Fusion of Cervical Vertebral Joint with Interbody Fusion Device, Anterior Approach, Anterior Column, Open Approach (ICD-10-PCS; 2020-04-03)
PROC: 0RT30ZZ Resection of Cervical Vertebral Disc, Open Approach (ICD-10-PCS; 2020-04-03)
DX: S12.100A Unspecified displaced fracture of second cervical vertebra, initial encounter for closed fracture (principal); G82.50 Quadriplegia, unspecified; I50.33 Acute on chronic diastolic (congestive) heart failure; M47.12 Other spondylosis with myelopathy, cervical region; F11.20 Opioid dependence, uncomplicated; M50.01 Cervical disc disorder with myelopathy, high cervical region; I11.0 Hypertensive heart disease with heart failure; M48.02 Spinal stenosis, cervical region; D69.6 Thrombocytopenia, unspecified; F41.9 Anxiety disorder, unspecified; F14.10 Cocaine abuse, uncomplicated; F17.210 Nicotine dependence, cigarettes, uncomplicated; M19.90 Unspecified osteoarthritis, unspecified site; D72.829 Elevated white blood cell count, unspecified; T38.0X5A Adverse effect of glucocorticoids and synthetic analogues, initial encounter; Y92.238 Other place in hospital as the place of occurrence of the external cause; M47.22 Other spondylosis with radiculopathy, cervical region; F20.9 Schizophrenia, unspecified; G89.29 Other chronic pain; J45.909 Unspecified asthma, uncomplicated; F12.10 Cannabis abuse, uncomplicated; Z91.030 Bee allergy status; Z93.3 Colostomy status; V89.2XXA Person injured in unspecified motor-vehicle accident, traffic, initial encounter; Y93.89 Activity, other specified; Y92.89 Other specified places as the place of occurrence of the external cause; Y99.8 Other external cause status; M50.122 Cervical disc disorder at C5-C6 level with radiculopathy
CPT/HCPCS: 36415; 70498; 71045; 72040; 72141; 76000; 76937; 80048; 80053; 80061; 80305; 81003; 82550; 82553; 84439; 84443; 84484; 85025; 85027; 86850; 86900; 88304; 88311; 90732; 93005; 93306; 93970; 95863; 95864; 95925; 95926; 96374; 97116; 97162; 97166; 97530; 99285; C1713; C1725; J0330; J0360; J0690; J1100; J1170; J1200; J1650; J1885; J2060; J2250; J2270; J2370; J2405; J2704; J2710; J3010; J3475; J3490; J7121; L0172; Q9967; U0003-CS

== ENCOUNTER 2020-05-14 22:31 | Emergency (ER) | payer MEDICARE, MEDICAID ==
[~2020-05-14] VITALS: Ht 172.7 cm; Wt 80.0 kg
[~2020-05-14 22:31] MED LIST: ALPR2TAB2 MT; DIPH25CA83 MT; LIDO15CR11 TP; MORP15TA67 PO
[2020-05-14] MEDS ORDERED: KETOROLAC 30MG/ML VIAL IM ONE (23:15)
[2020-05-14] MEDS ORDERED: ACETAMINOPHEN 325MG TABLET PO ONE (23:45)
[2020-05-15 00:46] VITALS: BP 168/80
== END 2020-05-15 00:47 | disposition home or self-care (01) ==
LOC: ER 22:31
DX: M54.2 Cervicalgia (principal); Z91.018 Allergy to other foods; Z79.899 Other long term (current) drug therapy; Z93.3 Colostomy status
CPT/HCPCS: 99283; J1885

== ENCOUNTER 2020-06-18 20:46 | Emergency (ER) | payer MEDICARE, MEDICAID ==
[~2020-06-18] VITALS: Ht 165.1 cm; Wt 89.0 kg
[2020-06-18] MEDS ORDERED: HYDROCODONE/ACETAMINOPHEN 5/325MG TABLET PO ONE (21:30)
[2020-06-19 02:08] VITALS: BP 136/83
== END 2020-06-19 02:10 | disposition home or self-care (01) ==
LOC: ER 20:46
DX: M54.2 Cervicalgia (principal); Z76.5 Malingerer [conscious simulation]; Z91.018 Allergy to other foods; Z98.890 Other specified postprocedural states; Z79.899 Other long term (current) drug therapy
CPT/HCPCS: 99284

== ENCOUNTER 2020-08-13 10:12 | Emergency (ER) | payer MEDICARE, MEDICAID ==
[~2020-08-13] VITALS: Ht 167.6 cm; Wt 55.0 kg
[2020-08-13] MEDS ORDERED: ACETAMINOPHEN 325MG TABLET PO ONE (11:00)
[2020-08-13] MEDS ORDERED: KETOROLAC 30MG/ML VIAL IM ONE (11:45)
[2020-08-13 13:09] VITALS: BP 171/105
== END 2020-08-13 13:34 | disposition home or self-care (01) ==
LOC: ER 10:12
DX: M54.2 Cervicalgia (principal); Z87.828 Personal history of other (healed) physical injury and trauma
CPT/HCPCS: 96372; 99283; J1885

== ENCOUNTER 2020-11-15 23:27 | Emergency (ER) | payer MEDICARE, MEDICAID ==
[~2020-11-15] VITALS: Ht 165.1 cm; Wt 59.0 kg
[2020-11-16] MEDS ORDERED: ACETAMINOPHEN 325MG TABLET PO ONE (02:00)
[2020-11-16 03:00] VITALS: BP 139/89
[2020-11-16] MEDS ORDERED: ACET650T37 MT (03:42)
== END 2020-11-16 04:51 | disposition home or self-care (01) ==
LOC: ER 23:27
DX: M25.552 Pain in left hip (principal); Z91.81 History of falling; I51.9 Heart disease, unspecified; J45.909 Unspecified asthma, uncomplicated; Z79.899 Other long term (current) drug therapy
CPT/HCPCS: 73501; 99283